=== PATIENT | male | born 1975 | race Caucasian/White ===

== ENCOUNTER → 2016-10-11 | Emergency (ER) | payer OTHER ==
[~2016-10-11] VITALS: Ht 162.6 cm; Wt 58.5 kg
[~2016-10-11] MED LIST: ADV250INH INH; ADV500INH INH; ALBU17IN INH; ALBU83IN INH; AMOXICILLIN PO; AUGM875T27 PO; BREO1INH PO; CENTTAB47 PO; CLAR10CA3 PO; CYMB1CAP5 PO; GABA600T PO; HUMA100I5 SC; IPRA2IN INH; Insulin; LEVA500T PO; LEVE1INJ5 SC; LEVO500T32 PO; LISI-538 PO; MUCI600T34 PO; NICO21DI5 TD; OXAZ10CA PO; PAXI10TA2 PO; PRED10TA PO; PRED20TAB PO; PROZ10CA7 PO; REQU2TAB3 PO; SING10TA32 PO; TOUJ1.2I SC; TRAM50TA2 PO; TRAZ100T4 PO; [UNRECOGNIZED DRUG - CODE] PO
[2016-10-11 22:46] VITALS: BP 124/62
== END | disposition home or self-care (01) ==
LOC: EDUNIT# 22:19 → EDBD 22:21 → M ED 23:54
DX: E16.2 Hypoglycemia, unspecified (principal); Z53.21 Procedure and treatment not carried out due to patient leaving prior to being seen by health care provider

== ENCOUNTER 2017-06-18 21:47 | Emergency (ER) | payer OTHER ==
[2017-06-18] MEDS: DEXTROSE 50% 50 ML SYRINGE IV (22:03)
[2017-06-18 22:16] LABS: BEDSIDE GLUCOSE 54 MG/DL (70-105)
[2017-06-18] MEDS ORDERED: NALOXONE INJ 2 MG/2 ML SYRINGE (J2310) As Ordered (22:59)
[2017-06-18] MEDS: NALOXONE INJ 2 MG/2 ML SYRINGE (J2310) IV (23:00)
[2017-06-18 23:11] LABS: BEDSIDE GLUCOSE 149 MG/DL (70-105)
[2017-06-18] MEDS: NALOXONE INJ 2 MG/2 ML SYRINGE (J2310) IM (23:14)
== END 2017-06-19 00:24 | disposition home or self-care (01) ==
LOC: M ED 21:47
DX: F11.10 Opioid abuse, uncomplicated (principal); E11.649 Type 2 diabetes mellitus with hypoglycemia without coma; I10 Essential (primary) hypertension; J45.909 Unspecified asthma, uncomplicated; F33.9 Major depressive disorder, recurrent, unspecified; Z79.899 Other long term (current) drug therapy; Z79.4 Long term (current) use of insulin; Z79.51 Long term (current) use of inhaled steroids; F17.210 Nicotine dependence, cigarettes, uncomplicated
CPT/HCPCS: J2310

== ENCOUNTER 2018-01-19 17:27 | Emergency (ER) | payer OTHER ==
[2018-01-19] MEDS: NALOXONE INJ 0.4 MG/1 ML VIAL (J2310) IV (18:16)
[2018-01-19] MEDS: NS 1,000 ML IV (18:20)
[2018-01-19 18:32] LABS: VENOUS BASE EXCESS -2.6 (-2.0-2.0); VENOUS HCO3 24.6 MEQ/L (23.0-27.0); VENOUS O2 SATURATION 95.9 % (60.0-80.0); VENOUS PARTIAL PRESSURE CO2 52.5 mmHg (38.0-50.0); VENOUS PARTIAL PRESSURE O2 84.6 mmHg (30.0-50.0); VENOUS PH 7.288 UNITS (7.330-7.430); VENOUS STANDARD HCO3 22.3 MEQ/L; VENOUS TOTAL CO2 26.2 MEQ/L (24.0-28.0)
[2018-01-19 18:41] LABS: BASO # 0.1 10^3/uL (0.0-0.2); BASO % 1.1 % (0.0-1.0); EOS # 0.2 10^3/uL (0.0-0.50); EOS % 2.4 % (0.0-3.0); HEMATOCRIT 35.2 % (42.0-52.0); HEMOGLOBIN 11.8 g/dl (13.5-17.5); IMMATURE GRANULOCYTE % 0.1 % (0-3.0); LYMPH % 27.1 % (24.0-44.0); MEAN CORPUSCULAR HEMOGLOBIN 30.1 pg (27.0-33.0); MEAN CORPUSCULAR HGB CONC 33.5 g/dl (32.0-36.5); MEAN CORPUSCULAR VOLUME 89.8 fl (80.0-96.0); MONO # 0.7 10^3/uL (0.0-0.8); MONO % 9.3 % (0.0-5.0); NEUTROPHILS # 4.3 10^3/uL (1.8-7.7); PLATELET COUNT, AUTOMATED 244 10^3/uL (150-450); RED BLOOD COUNT 3.92 10^6/uL (4.30-6.10); RED CELL DISTRIBUTION WIDTH 12.6 % (11.5-14.5); WHITE BLOOD COUNT 7.2 10^3/uL (4.0-10.0)
[2018-01-19 18:59] LABS: ALBUMIN 3.9 GM/DL (3.2-5.2); ALBUMIN/GLOBULIN RATIO 1.39 (1.00-1.93); ALKALINE PHOSPHATASE 64 U/L (45-117); ALT/SGPT 33 U/L (12-78); ANION GAP 8 MEQ/L (8-16); AST/SGOT 15 U/L (7-37); BILIRUBIN,DIRECT 0.1 MG/DL (0.0-0.2); BILIRUBIN,TOTAL 0.4 MG/DL (0.2-1.0); BLOOD UREA NITROGEN 18 MG/DL (7-18); CALCIUM LEVEL 8.5 MG/DL (8.5-10.1); CARBON DIOXIDE LEVEL 26 MEQ/L (21-32); CHLORIDE LEVEL 107 MEQ/L (98-107); CPK CREATINE PHOSPHOKINASE 114 U/L (39-308); CREATININE FOR GFR 1.54 MG/DL (0.70-1.30); GLOMERULAR FILTRATION RATE 53.3 (>60); GLUCOSE, FASTING 310 MG/DL (70-100); POTASSIUM SERUM 4.8 MEQ/L (3.5-5.1); SALICYLATE LEVEL 2.2 MG/DL (5.0-30.0); SODIUM LEVEL 141 MEQ/L (136-145); TOTAL PROTEIN 6.7 GM/DL (6.4-8.2); TROPONIN I < 0.02 NG/ML (< 0.10)
[2018-01-19 19:00] LABS: ACETAMINOPHEN LEVEL < 2.0 UG/ML (10.0-30.0); CK-MB VALUE MASS 2.8 NG/ML (<3.6); MB/CK RELATIVE INDEX 2.45 (< OR =4)
[2018-01-19 19:02] LABS: ETHYL ALCOHOL (ETHANOL) < 0.003 % (0.000-0.010)
== END 2018-01-19 19:50 | disposition left against medical advice (07) ==
LOC: M ED 17:27
DX: T40.2X1A Poisoning by other opioids, accidental (unintentional), initial encounter (principal); F11.120 Opioid abuse with intoxication, uncomplicated; E11.9 Type 2 diabetes mellitus without complications; I10 Essential (primary) hypertension; M54.9 Dorsalgia, unspecified; Z79.899 Other long term (current) drug therapy; Z79.51 Long term (current) use of inhaled steroids; Z79.4 Long term (current) use of insulin
CPT/HCPCS: J2310

== ENCOUNTER → 2018-02-10 | Outpatient (CLI) | payer MEDICAID | LOC: M PAIN 13:30 | DX: E11.42 Type 2 diabetes mellitus with diabetic polyneuropathy (principal); G25.81 Restless legs syndrome; J45.909 Unspecified asthma, uncomplicated; I10 Essential (primary) hypertension; F17.200 Nicotine dependence, unspecified, uncomplicated; Z79.4 Long term (current) use of insulin; Z79.899 Other long term (current) drug therapy | CPT/HCPCS: G0463 ==

== ENCOUNTER → 2018-02-27 | Outpatient (CLI) | payer MEDICAID | LOC: M PAIN 15:00 | DX: Z53.29 Procedure and treatment not carried out because of patient's decision for other reasons (principal) ==

== ENCOUNTER → 2018-03-17 | Outpatient (CLI) | payer MEDICAID | LOC: M PAIN 15:45 | DX: Z53.29 Procedure and treatment not carried out because of patient's decision for other reasons (principal) ==

== ENCOUNTER 2018-09-12 10:32 | Emergency (ER) | payer MEDICAID, OTHER ==
[~2018-09-12] VITALS: Ht 162.6 cm; Wt 57.0 kg
[~2018-09-12 10:32] MED LIST changes: -AUGM875T27 PO; +AUGM875T28 PO; -GABA600T PO; +GABA600T4 PO; +HYDR-3719; +LEVA1TAB2 PO; -LEVA500T PO; +LEVO500T3 PO; -LEVO500T32 PO; +LYRI200C; -MUCI600T34 PO; +MUCI600T37 PO; -NICO21DI5 TD; +NICO21DI6 TD; -OXAZ10CA PO; +OXAZ10CA3 PO; +PAXI10TA12 PO; -PAXI10TA2 PO; +PRED-351 PO; -PRED10TA PO; +TRAZ-163 PO; -TRAZ100T4 PO; +[UNRECOGNIZED DRUG - CODE] PO; -[UNRECOGNIZED DRUG - CODE] PO
[2018-09-12] MEDS ORDERED: methylPREDNISolone INJ 40 MG/1 ML VIAL (J2920) IV ONE (11:45)
[2018-09-12] MEDS: IPRATROPIUM 0.5MG/ALBUTEROL 2.5MG INH SOL UD 3ML (DUONEB)(J7620) NEB SCH ×3 (11:58→12:36)
[2018-09-12 12:49] LABS: BASO # 0.1 10^3/uL (0.0-0.2); EOS # 0.7 10^3/uL (0.0-0.50); EOS % 6.4 % (0.0-3.0); HEMATOCRIT 38.2 % (42.0-52.0); HEMOGLOBIN 12.4 g/dl (13.5-17.5); LYMPH # 1.3 10^3/uL (1.5-4.5); MEAN CORPUSCULAR HEMOGLOBIN 29.7 pg (27.0-33.0); MEAN CORPUSCULAR HGB CONC 32.5 g/dl (32.0-36.5); MEAN CORPUSCULAR VOLUME 91.4 fl (80.0-96.0); MONO # 0.7 10^3/uL (0.0-0.8); MONO % 6.7 % (0.0-5.0); NEUTROPHILS # 8.1 10^3/uL (1.8-7.7); NEUTROPHILS % 73.5 % (36.0-66.0); PLATELET COUNT, AUTOMATED 218 10^3/uL (150-450); RED BLOOD COUNT 4.18 10^6/uL (4.30-6.10); WHITE BLOOD COUNT 11.1 10^3/uL (4.0-10.0)
--- NOTE | 2018-09-12 13:04 | REP ---
Chest x-ray: Two views. History: Short of breath and cough. Comparison chest x-ray: April 04, 2015. Findings: The lungs are hyperinflated suggestive of some degree of COPD but clear. Pleural angles are sharp. Heart size is normal. Pulmonary vasculature is not increased. There are mild degenerative changes in the thoracic spine. No other bony abnormality. Impression: Mild hyperinflation. Otherwise no active disease. Electronically Signed by Fernando Rubio MD 09/12/2018 12:55 P
[2018-09-12 13:18] LABS: BLOOD UREA NITROGEN 17 MG/DL (7-18); CALCIUM LEVEL 9.1 MG/DL (8.5-10.1); CARBON DIOXIDE LEVEL 24 MEQ/L (21-32); CHLORIDE LEVEL 107 MEQ/L (98-107); CREATININE FOR GFR 0.82 MG/DL (0.70-1.30); GLOMERULAR FILTRATION RATE > 60.0 (>60); GLUCOSE, FASTING 189 MG/DL (70-100); POTASSIUM SERUM 4.4 MEQ/L (3.5-5.1); SODIUM LEVEL 138 MEQ/L (136-145)
[2018-09-12] MEDS ORDERED: AUGM875T28 PO (13:54)
[2018-09-12] MEDS ORDERED: PRED20TA PO (13:54)
[2018-09-12] MEDS ORDERED: ADV500INH INH (13:54)
[2018-09-12] MEDS ORDERED: MUCI600T31 PO (13:54)
[2018-09-12 14:01] VITALS: BP 130/64
--- NOTE | 2018-09-13 08:16 | ECGEPIP ---
Stationary ECG Study [facility] - ED Test Date: 2018-09-12 Pat Name: BIENVENIDO BOLIVAR Department: Room: - Gender: M Fibreglass Lay Up Worker: : 1975 Requested By: KRISTYN CASTILLO PA-C. Order Number: [id number] Reading MD: Coral Daly Measurements Intervals [place] Rate: 82 P: 81 MS: 127 QRS: 81 QRSD: 90 T: 71 QT: 371 QTc: 435 Interpretive Statements SINUS RHYTHM RIGHT VENTRICULAR CONDUCTION DELAY SIMILAR 04/02/15 Electronically Signed On 09-13-2018 8:16:14 EDT by Coral Daly
== END 2018-09-12 14:03 | disposition home or self-care (01) ==
LOC: M ED 10:32
DX: J44.1 Chronic obstructive pulmonary disease with (acute) exacerbation (principal); J20.9 Acute bronchitis, unspecified; I45.89 Other specified conduction disorders; Z72.0 Tobacco use; Z79.4 Long term (current) use of insulin; Z79.899 Other long term (current) drug therapy
CPT/HCPCS: 36415; 71046; 80048; 85025; 93005; 94640; 96374; 99284; J2920

== ENCOUNTER → 2018-10-17 | Outpatient (REF) | payer OTHER ==
[~2018-10-17] MED LIST changes: +MUCI600T31 PO; +PRED20TA PO
[2018-10-17 16:23] LABS: HEMOGLOBIN A1c 9.5 %
[2018-10-17 16:36] LABS: ALBUMIN 3.6 GM/DL (3.2-5.2); ALT/SGPT 24 U/L (12-78); BILIRUBIN,TOTAL 0.3 MG/DL (0.2-1.0); BLOOD UREA NITROGEN 19 MG/DL (7-18); CALCIUM LEVEL 8.2 MG/DL (8.5-10.1); CARBON DIOXIDE LEVEL 30 MEQ/L (21-32); CHLORIDE LEVEL 102 MEQ/L (98-107); CHOLESTEROL LEVEL 157 MG/DL (<200); CHOLESTEROL RISK RATIO 2.211 (<5); CREATININE FOR GFR 0.86 MG/DL (0.70-1.30); GLOMERULAR FILTRATION RATE > 60.0 (>60); GLUCOSE, FASTING 230 MG/DL (70-100); HDL CHOLESTEROL 71 MG/DL (>40); LDL CHOLESTEROL 72 MG/DL (<100); NON-HDL-C 86 MG/DL; POTASSIUM SERUM 4.2 MEQ/L (3.5-5.1); SODIUM LEVEL 136 MEQ/L (136-145); TOTAL PROTEIN 6.3 GM/DL (6.4-8.2); TRIGLYCERIDES LEVEL 71 MG/DL (<150)
== END ==
LOC: M SFHCPLAZ 14:36
PROVIDERS: ATTEND Family Medicine
DX: Z51.81 Encounter for therapeutic drug level monitoring (principal); Z13.220 Encounter for screening for lipoid disorders; I10 Essential (primary) hypertension; E10.42 Type 1 diabetes mellitus with diabetic polyneuropathy

== ENCOUNTER 2019-10-31 14:42 | Emergency (ER) | payer MEDICARE, MEDICAID ==
[~2019-10-31] VITALS: Ht 162.6 cm; Wt 58.6 kg
[~2019-10-31 14:42] MED LIST changes: -TRAZ-163 PO; +TRAZ-257 PO
[2019-10-31 14:58] VITALS: BP 119/69
[2019-10-31] MEDS ORDERED: NS 1,000 ML IV ONE (15:00)
--- NOTE | 2019-10-31 15:38 | REP ---
PORTABLE CHEST X-RAY: SINGLE VIEW. HISTORY: Diabetic ketoacidosis. Comparison chest x-ray: September 12, 2018 FINDINGS: The lungs are well inflated. There are increased markings in the lung apices bilaterally, uncertain significance. There is nonmetallic jewelry artifact around the neck and projecting over the right paratracheal region. I cannot exclude subtle interstitial infiltrates in the apices bilaterally. Heart is not enlarged. IMPRESSION: Increased markings in the lung apices bilaterally. Clothing and jewelry artifact seen. Otherwise no acute disease. Electronically Signed by Fernando Rubio MD 10/31/2019 04:16 P
--- NOTE | 2019-10-31 17:53 | ECGEPIP ---
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
== END 2019-10-31 15:50 | disposition left against medical advice (07) ==
LOC: M ED 14:42 → EDBD 14:42 → M ED 15:50
DX: R55 Syncope and collapse (principal); E10.65 Type 1 diabetes mellitus with hyperglycemia; R00.0 Tachycardia, unspecified; J45.909 Unspecified asthma, uncomplicated; Z79.899 Other long term (current) drug therapy; Z79.4 Long term (current) use of insulin

== ENCOUNTER 2020-05-17 03:08 | Emergency (ER) | payer MEDICARE, MEDICAID ==
[~2020-05-17] VITALS: Ht 162.6 cm; Wt 58.6 kg
[2020-05-17] MEDS ORDERED: GABA600T4 PO (03:29)
[2020-05-17] MEDS: COMBIVENT RESPIMAT 100-20MCG INHALER 4GM INH SCH ×3 (04:03→04:16)
[2020-05-17 04:26] LABS: BASO # 0.1 10^3/uL (0.0-0.2); BASO % 1.3 % (0.0-1.0); EOS # 0.7 10^3/uL (0.0-0.5); EOS % 9.1 % (0.0-3.0); HEMATOCRIT 37.8 % (42.0-52.0); HEMOGLOBIN 12.2 g/dl (13.5-17.5); LYMPH # 2.1 10^3/uL (1.5-5.0); LYMPH % 26.9 % (24.0-44.0); MEAN CORPUSCULAR HEMOGLOBIN 28.7 pg (27.0-33.0); MEAN CORPUSCULAR HGB CONC 32.3 g/dl (32.0-36.5); MEAN CORPUSCULAR VOLUME 88.9 fl (80.0-96.0); MONO # 0.8 10^3/uL (0.0-0.8); MONO % 9.6 % (0.0-5.0); NEUTROPHILS # 4.2 10^3/uL (1.5-8.5); NEUTROPHILS % 52.8 % (36.0-66.0); PLATELET COUNT, AUTOMATED 251 10^3/uL (150-450); RED BLOOD COUNT 4.25 10^6/uL (4.30-6.10); WHITE BLOOD COUNT 7.9 10^3/uL (4.0-10.0)
[2020-05-17] MEDS ORDERED: methylPREDNISolone 125MG 2ML VIAL IV ONE (04:30)
[2020-05-17 04:36] LABS: ABG BASE EXCESS 0.7 (-2.0-2.0); ABG HCO3 27.2 MEQ/L (22.0-26.0); ABG O2 SATURATION 98.3 % (95.0-99.0); ABG PARTIAL PRESSURE CO2 51.6 mmHg (35.0-45.0); ABG PARTIAL PRESSURE O2 119.6 mmHg (75.0-100.0); ABG STANDARD HCO3 25.1 MEQ/L (22.0-26.0); ABG TOTAL CO2 28.8 MEQ/L (22.0-29.0)
[2020-05-17 04:40] LABS: ALBUMIN 3.8 GM/DL (3.2-5.2); ALT/SGPT 33 U/L (12-78); BILIRUBIN,DIRECT 0.1 MG/DL (0.0-0.2); BILIRUBIN,TOTAL 0.3 MG/DL (0.2-1.0); BLOOD UREA NITROGEN 15 MG/DL (7-18); CARBON DIOXIDE LEVEL 27 MEQ/L (21-32); CHLORIDE LEVEL 109 MEQ/L (98-107); CK-MB VALUE MASS 14.8 NG/ML (<3.6); CPK CREATINE PHOSPHOKINASE 323 U/L (39-308); CREATININE FOR GFR 0.71 MG/DL (0.70-1.30); GLOMERULAR FILTRATION RATE > 60.0 (>60); GLUCOSE, FASTING 82 MG/DL (70-100); MB/CK RELATIVE INDEX 4.58 (< OR =4); POTASSIUM SERUM 3.8 MEQ/L (3.5-5.1); SODIUM LEVEL 143 MEQ/L (136-145); TOTAL PROTEIN 6.8 GM/DL (6.4-8.2); TROPONIN I < 0.02 NG/ML (< 0.10)
[2020-05-17] MEDS ORDERED: PRED20TA PO (06:42)
--- NOTE | 2020-05-17 06:51 | REPVR ---
PROCEDURE INFORMATION: Exam: XR Chest, 1 View Exam date and time: 05/17/2020 6:05 AM Age: 45 years old Clinical indication: Cough; Additional info: Dyspnea/cough TECHNIQUE: Imaging protocol: XR of the chest Views: 1 view. COMPARISON: [place] PORTABLE CHEST X-RAY 10/31/2019 3:03 PM FINDINGS: Lungs: No evidence of acute pneumonia. Bilateral pulmonary hyperinflation consistent with underlying COPD. No interval change since the previous chest radiograph from 10/31/2019. Pleural space: Unremarkable. No pleural effusion. No pneumothorax. Heart/Mediastinum: No CT evidence of thoracic aortic aneurysm. The heart size is normal. Bones/joints: Mild chronic degenerative vertebral body endplate osteophytic disease is seen in the mid to lower thoracic spine. IMPRESSION: 1. No CT evidence of thoracic aortic aneurysm. 2. The heart size is normal. 3. Mild chronic degenerative vertebral body endplate osteophytic disease is seen in the mid to lower thoracic spine. Electronically signed by: Vish White On 05/17/2020 06:51:13 AM
[2020-05-17 07:00] VITALS: BP 152/71
--- NOTE | 2020-05-17 10:05 | ECGEPIP ---
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
== END 2020-05-17 07:11 | disposition home or self-care (01) ==
LOC: M ED 03:08
DX: J45.901 Unspecified asthma with (acute) exacerbation (principal); M25.78 Osteophyte, vertebrae; E11.9 Type 2 diabetes mellitus without complications; F17.200 Nicotine dependence, unspecified, uncomplicated; Z79.4 Long term (current) use of insulin; Z79.899 Other long term (current) drug therapy
CPT/HCPCS: 36600; 71045; 80048; 80076; 82550; 82553; 82803; 83605; 84484; 85025; 87486; 87581; 87633; 87798; 93005; 93041; 94640; 96374; 99285; J2930

== ENCOUNTER 2020-06-16 19:38 | Emergency (ER) | payer MEDICARE, MEDICAID ==
[~2020-06-16] VITALS: Ht 162.6 cm; Wt 55.9 kg
[2020-06-16 19:40] VITALS: BP 158/72
== END 2020-06-16 22:05 | disposition left against medical advice (07) ==
LOC: M ED 19:38
DX: Z53.21 Procedure and treatment not carried out due to patient leaving prior to being seen by health care provider (principal)

== ENCOUNTER → 2020-09-08 | Outpatient (REF) | payer MEDICARE, MEDICAID ==
[~2020-09-08] MED LIST changes: -LISI-538 PO; +LISI20TA33 PO
[2020-09-08 14:41] LABS: HEMOGLOBIN A1c 12.3 %
[2020-09-08 15:05] LABS: ALBUMIN 3.7 GM/DL (3.2-5.2); ALT/SGPT 42 U/L (12-78); BILIRUBIN,TOTAL 0.2 MG/DL (0.2-1.0); BLOOD UREA NITROGEN 15 MG/DL (7-18); CALCIUM LEVEL 9.6 MG/DL (8.5-10.1); CARBON DIOXIDE LEVEL 33 MEQ/L (21-32); CHLORIDE LEVEL 104 MEQ/L (98-107); CREATININE FOR GFR 0.69 MG/DL (0.70-1.30); GLOMERULAR FILTRATION RATE > 60.0 (>60); GLUCOSE, FASTING 170 MG/DL (70-100); POTASSIUM SERUM 4.7 MEQ/L (3.5-5.1); SODIUM LEVEL 141 MEQ/L (136-145); TOTAL PROTEIN 6.6 GM/DL (6.4-8.2)
[2020-09-08 15:37] LABS: MAU/CREAT RATIO 656.6 MCG/MG (0.0-30.0)
== END ==
LOC: M SFHCPLAZ 11:48
PROVIDERS: ATTEND Family Medicine
DX: E10.42 Type 1 diabetes mellitus with diabetic polyneuropathy (principal); I10 Essential (primary) hypertension
CPT/HCPCS: 36415; 80053; 82043; 83036; G0463

== ENCOUNTER 2020-12-13 00:08 | Emergency (ER) | payer MEDICARE, MEDICAID ==
[~2020-12-13] VITALS: Ht 162.6 cm; Wt 52.6 kg
[2020-12-13 00:09] VITALS: BP 174/86
== END 2020-12-13 03:38 | disposition left against medical advice (07) ==
LOC: M ED 00:08
DX: Z53.21 Procedure and treatment not carried out due to patient leaving prior to being seen by health care provider (principal)

== ENCOUNTER 2021-01-28 14:32 | Emergency (ER) | payer OTHER, MEDICAID ==
[2021-01-28] MEDS ORDERED: NS 1,000 ML IV ONE (17:30)
[2021-01-28] MEDS ORDERED: LIDOCAINE 2% 5ML JELLY UROJET TOP ONE (17:30)
[2021-01-28 17:42] LABS: BASO # 0.1 10^3/uL (0.0-0.2); BASO % 0.6 % (0.0-1.0); EOS # 0.4 10^3/uL (0.0-0.5); EOS % 3.3 % (0.0-3.0); HEMATOCRIT 44.2 % (42.0-52.0); HEMOGLOBIN 14.5 g/dl (13.5-17.5); LYMPH # 1.8 10^3/uL (1.5-5.0); LYMPH % 13.2 % (24.0-44.0); MEAN CORPUSCULAR HEMOGLOBIN 29.7 pg (27.0-33.0); MEAN CORPUSCULAR HGB CONC 32.8 g/dl (32.0-36.5); MEAN CORPUSCULAR VOLUME 90.4 fl (80.0-96.0); MONO # 1.2 10^3/uL (0.0-0.8); MONO % 8.6 % (2.0-8.0); NEUTROPHILS # 9.9 10^3/uL (1.5-8.5); NEUTROPHILS % 73.9 % (36.0-66.0); PLATELET COUNT, AUTOMATED 287 10^3/uL (150-450); RED BLOOD COUNT 4.89 10^6/uL (4.30-6.10); WHITE BLOOD COUNT 13.4 10^3/uL (4.0-10.0)
[2021-01-28 17:53] LABS: ACETAMINOPHEN LEVEL < 2.0 UG/ML (10.0-30.0); ACETONE/KETONE 2.05 MG/DL (<2.81); ALBUMIN 4.2 GM/DL (3.2-5.2); ALT/SGPT 40 U/L (12-78); BILIRUBIN,DIRECT 0.2 MG/DL (0.0-0.2); BILIRUBIN,TOTAL 0.5 MG/DL (0.2-1.0); BLOOD UREA NITROGEN 20 MG/DL (7-18); CALCIUM LEVEL 9.6 MG/DL (8.5-10.1); CARBON DIOXIDE LEVEL 29 MEQ/L (21-32); CHLORIDE LEVEL 109 MEQ/L (98-107); CK-MB VALUE MASS 9.2 NG/ML (<3.6); CPK CREATINE PHOSPHOKINASE 479 U/L (39-308); CREATININE FOR GFR 0.78 MG/DL (0.70-1.30); ETHYL ALCOHOL (ETHANOL) < 0.003 % (0.000-0.010); GLOMERULAR FILTRATION RATE > 60.0 (>60); GLUCOSE, FASTING 52 MG/DL (70-100); MB/CK RELATIVE INDEX 1.92 (< OR =4); POTASSIUM SERUM 4.1 MEQ/L (3.5-5.1); SALICYLATE LEVEL < 1.7 MG/DL (5.0-30.0); SODIUM LEVEL 143 MEQ/L (136-145); TOTAL PROTEIN 7.4 GM/DL (6.4-8.2); TROPONIN I < 0.02 NG/ML (< 0.10)
[2021-01-28] MEDS ORDERED: NARC1SPR NARES (20:14)
[2021-01-28 20:16] VITALS: BP 140/78
--- NOTE | 2021-01-29 18:49 | ECGEPIP ---
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
== END 2021-01-28 20:20 | disposition home or self-care (01) ==
LOC: M ED 14:32
DX: T40.1X1A Poisoning by heroin, accidental (unintentional), initial encounter (principal); Y92.89 Other specified places as the place of occurrence of the external cause; E11.9 Type 2 diabetes mellitus without complications; G62.9 Polyneuropathy, unspecified; G25.81 Restless legs syndrome; Z87.442 Personal history of urinary calculi; Z79.899 Other long term (current) drug therapy; Z79.4 Long term (current) use of insulin

== ENCOUNTER 2021-02-01 16:20 | Emergency (ER) | payer MEDICAID ==
[~2021-02-01 16:20] MED LIST changes: +NARC1SPR NARES
== END 2021-02-01 16:35 | disposition left against medical advice (07) ==
LOC: M ED 16:20 → EDBD 16:20 → M ED 16:35
DX: Z53.29 Procedure and treatment not carried out because of patient's decision for other reasons (principal)

== ENCOUNTER → 2021-08-10 | Outpatient (CLI) | payer OTHER ==
[~2021-08-10] MED LIST changes: -LEVO500T3 PO; +LEVO500T4 PO
== END ==
LOC: M WUC 13:55
PROVIDERS: ATTEND Physician Assistant Medical
DX: S92.002A Unspecified fracture of left calcaneus, initial encounter for closed fracture (principal); Y92.9 Unspecified place or not applicable; Y93.9 Activity, unspecified; Y99.9 Unspecified external cause status

== ENCOUNTER → 2021-11-10 | Outpatient (CLI) | payer OTHER ==
[~2021-11-10] MED LIST changes: +ALBU2.5V10 INH; -ALBU83IN INH
== END ==
LOC: M WUC 10:37
PROVIDERS: ATTEND Surgery
DX: M79.672 Pain in left foot (principal)

== ENCOUNTER → 2022-01-29 | Outpatient (CLI) | payer OTHER ==
[~2022-01-29] MED LIST changes: +INSUHUMDS SC; +LEVO1TAB39 PO; -LEVO500T4 PO
== END ==
LOC: M LAB 13:09
PROVIDERS: ATTEND Physician Assistant Medical
DX: A07.3 Isosporiasis (principal); B38.3 Cutaneous coccidioidomycosis

== ENCOUNTER → 2023-09-14 | Outpatient (CLI) | payer MEDICARE, MEDICAID ==
[~2023-09-14] MED LIST changes: +INSU100I6 SC; -LEVE1INJ5 SC; +MONT-5 PO; -PAXI10TA12 PO; +PAXI10TA13 PO; -SING10TA32 PO
== END ==
LOC: M OUTALCOH 08:43
PROVIDERS: ATTEND Psychiatry & Neurology Psychiatry
DX: F11.20 Opioid dependence, uncomplicated (principal); F17.200 Nicotine dependence, unspecified, uncomplicated

== ENCOUNTER 2023-10-03 14:58 | Outpatient (RCR) | payer MEDICAID | END 2023-10-04 | LOC: M OUTALCOH 14:58 | PROVIDERS: ATTEND Psychiatry & Neurology Child & Adolescent Psychiatry | DX: F11.20 Opioid dependence, uncomplicated (principal); F17.200 Nicotine dependence, unspecified, uncomplicated ==

== ENCOUNTER → 2023-12-22 | Outpatient (REF) | payer MEDICAID | LOC: M RAD 14:20 → EDSTATUS 14:29 → M RAD 14:30 | PROVIDERS: ATTEND Internal Medicine | DX: M46.96 Unspecified inflammatory spondylopathy, lumbar region (principal); M50.30 Other cervical disc degeneration, unspecified cervical region ==

== ENCOUNTER 2024-10-09 09:27 | Emergency (ER) | payer MEDICAID, OTHER ==
[~2024-10-09] VITALS: Ht 162.6 cm; Wt 53.1 kg
[~2024-10-09 09:27] MED LIST changes: -ADV250INH INH; -ADV500INH INH; +ADVA1AER10 INH; +ADVA1AER9 INH; +GABA-1490 PO; -GABA600T4 PO
[2024-10-09] MEDS: IPRATROPIUM 0.5MG/ALBUTEROL 2.5MG INH SOL UD 3ML NEB ONE (12:04)
[2024-10-09] MEDS ORDERED: PRED10TA2 PO (13:40)
[2024-10-09] MEDS ORDERED: ALBU2.5V10 NEB (13:41)
[2024-10-09 13:43] VITALS: BP 159/73; TEMP 98
[2024-10-09 14:15] VITALS: O2SAT 95
== END 2024-10-09 14:34 | disposition home or self-care (01) ==
LOC: M ED 09:27
DX: J44.1 Chronic obstructive pulmonary disease with (acute) exacerbation (principal); E10.9 Type 1 diabetes mellitus without complications; F17.200 Nicotine dependence, unspecified, uncomplicated; Z79.4 Long term (current) use of insulin

== ENCOUNTER → 2025-03-19 | Outpatient (CLI) | payer MEDICARE ==
[~2025-03-19] MED LIST changes: +ALBU2.5V10 NEB; +PRED10TA2 PO; +PROZ10CA11 PO; -PROZ10CA7 PO
== END ==
LOC: M RAD 13:14
PROVIDERS: ATTEND Physician Assistant Medical
DX: M25.551 Pain in right hip (principal)

== ENCOUNTER 2025-03-31 07:37 | Inpatient (IN) | payer MEDICARE ==
[~2025-03-31] VITALS: Ht 162.6 cm; Wt 55.2 kg
[2025-03-31] MEDS: IPRATROPIUM 0.5 MG/ALBUTEROL 2.5 MG INH SOL UD 3 ML NEB ONE ×2 (08:16→11:47)
[2025-03-31] MEDS: ALBUTEROL SULFATE 2.5 MG/0.5 ML INH CONCENTRATE NEB SOLN INH ONE ×2 (08:16→11:47)
[2025-03-31 08:32] LABS: ABG BASE EXCESS -4.7 (-2.0-2.0); ABG HCO3 20.9 MMOL/L (22.0-26.0); ABG O2 SATURATION 95.7 % (95.0-99.0); ABG PARTIAL PRESSURE CO2 40.5 mmHg (35.0-45.0); ABG PARTIAL PRESSURE O2 81.3 mmHg (75.0-100.0); ABG STANDARD HCO3 20.6 MMOL/L. (22.0-26.0); ABG TOTAL CO2 22.1 MMOL/L (22.0-29.0); ABG pH (ARTERIAL) 7.330 UNITS (7.350-7.450)
[2025-03-31] MEDS: NS (Normal Saline) 0.9% 1,000 ML IV ONE (08:45)
[2025-03-31 08:57] LABS: BASO # 0.2 10^3/uL (0.0-0.2); BASO % 1.3 % (0.0-1.0); EOS # 0.7 10^3/uL (0.0-0.5); EOS % 4.3 % (0.0-3.0); LYMPH # 0.9 10^3/uL (1.5-5.0); LYMPH % 5.9 % (24.0-44.0); MONO # 0.7 10^3/uL (0.0-0.8); MONO % 4.3 % (2.0-8.0); NEUTROPHILS # 12.7 10^3/uL (1.5-8.5); NEUTROPHILS % 83.7 % (36.0-66.0); PLATELET COUNT, AUTOMATED 413 10^3/uL (150-450)
[2025-03-31 09:10] LABS: OSMOLALITY SERUM 304 MOSM/KG (275-295)
[2025-03-31 09:15] LABS: ALT/SGPT 55 U/L (7.0-40); AST/SGOT 52 U/L (<34); CALCIUM LEVEL 9.0 MG/DL (8.5-10.1); CARBON DIOXIDE LEVEL 25 MMOL/L (20-31); CHLORIDE LEVEL 102 MMOL/L (98-107); CREATININE FOR GFR 0.61 MG/DL (0.70-1.30); GLOMERULAR FILTRATION RATE > 90.0 (>60); MAGNESIUM LEVEL 1.9 MG/DL (1.8-2.4); PHOSPHORUS LEVEL 3.4 MG/DL (2.5-4.9); POTASSIUM SERUM 4.4 MMOL/L (3.5-5.1); SODIUM LEVEL 140 MMOL/L (136-145)
[2025-03-31 09:16] LABS: ACETONE/KETONE 4.26 MMOL/L (0.02-0.27)
[2025-03-31] MEDS ORDERED: ISOVUE-370 76% 100 ML VIAL As Ordered ONE (10:02)
[2025-03-31 10:41] LABS: ESTIMATED AVERAGE GLUCOSE 249.0 MG/DL (60-110)
[2025-03-31 11:14] VITALS: O2SAT 94
[2025-03-31 11:40] LABS: KETONE, URINE AUTO RFX 2+ mg/dL (NEGATIVE); LEUKOCYTE ESTERASE UR AUTO RFX NEGATIVE (NEGATIVE); NITRITE, URINE AUTO RFX NEGATIVE (NEGATIVE); RBC, URINE AUTO RFX 1 /HPF (0-3); SQUAM EPITHELIAL CELL UR AURFX 0 /HPF (0-6); WBC, URINE AUTO RFX 1 /HPF (0-3)
[2025-03-31] MEDS ORDERED: BASA100I SC (12:58)
[2025-03-31] MEDS ORDERED: VENTAER INH (12:58)
[2025-03-31] MEDS ORDERED: ALBU2.5V10 INH (12:58)
[2025-03-31] MEDS ORDERED: NOVOINJ SC (12:58)
[2025-03-31] MEDS ORDERED: HOME MED LIST COMPLETE! XX SCH (13:00)
[2025-03-31] MEDS ORDERED: GLUCOSE 4 GM CHEW PO PRN (13:35)
[2025-03-31] MEDS ORDERED: GLUCAGON INJ 1 MG VIAL SC PRN (13:35)
[2025-03-31] MEDS ORDERED: DEXTROSE 50% 50 ML SYRINGE IV PRN (13:35)
[2025-03-31] MEDS: cefTRIAXone SOD 1 GM in DEXTROSE 5% (D5W) ADV/MINI-BAG 50 ML IV ONE (13:43)
[2025-03-31] MEDS ORDERED: ALBUTEROL SULFATE 2.5 MG/0.5 ML INH CONCENTRATE NEB SOLN INH PRN (13:45)
[2025-03-31] MEDS ORDERED: ALBUTEROL 90 MCG/ACT 8 GM HFA INHALER INH PRN (13:45)
[2025-03-31] MEDS: INSULIN LISPRO (NovoLOG) PER UNIT SC ONE (13:58)
[2025-03-31] MEDS: LanTUS (INSULIN GLARGINE INJ) 1 UNITS/0.01 ML SC SCH (13:58)
[2025-03-31] MEDS: LR 1,000 ML IV ONE (14:00)
[2025-03-31] MEDS: DOXYCYCLINE HYCLATE 100 MG in DEXTROSE 5% (D5W) MINI-BAG PLU 100 ML IV ONE (14:34)
[2025-03-31 15:04] LABS: BARBITURATES URINE NEGATIVE (NEGATIVE); BENZODIAZEPINES URINE NEGATIVE (NEGATIVE); CANNABINOIDS URINE NEGATIVE (NEGATIVE); METHADONE URINE NEGATIVE (NEGATIVE); OPIATES URINE NEGATIVE (NEGATIVE); PHENCYCLIDINE URINE NEGATIVE (NEGATIVE)
[2025-03-31 15:07] LABS: AMPHETAMINES LEVEL URINE POSITIVE (NEGATIVE); COCAINE METABOLITE URINE POSITIVE (NEGATIVE)
[2025-03-31 15:39] VITALS: BP 169/76; TEMP 97.7; O2SAT 96
[2025-03-31] MEDS: LR 1,000 ML IV SCH (16:43)
[2025-03-31] MEDS: INSULIN LISPRO (NovoLOG) PER UNIT SC SCH ×2 (17:37→21:15)
[2025-03-31] MEDS: ADVAIR HFA 230/21 MCG INHALER INH SCH (19:31)
[2025-03-31 20:00] VITALS: BP 139/63; TEMP 98.2; O2SAT 95
[2025-03-31] MEDS: DOXYCYCLINE HYCLATE 100 MG TABLET PO SCH (21:15)
[2025-04-01 04:00] VITALS: BP 138/64; TEMP 97.8; O2SAT 97
[2025-04-01 06:30] LABS: PLATELET COUNT, AUTOMATED 365 10^3/uL (150-450)
[2025-04-01 06:48] LABS: ALT/SGPT 41 U/L (7.0-40); AST/SGOT 30 U/L (<34); CALCIUM LEVEL 8.5 MG/DL (8.5-10.1); CARBON DIOXIDE LEVEL 24 MMOL/L (20-31); CHLORIDE LEVEL 105 MMOL/L (98-107); CREATININE FOR GFR 0.63 MG/DL (0.70-1.30); GLOMERULAR FILTRATION RATE > 90.0 (>60); POTASSIUM SERUM 4.4 MMOL/L (3.5-5.1); SODIUM LEVEL 139 MMOL/L (136-145)
[2025-04-01] MEDS: LanTUS (INSULIN GLARGINE INJ) 1 UNITS/0.01 ML SC SCH (09:28)
[2025-04-01 09:29] VITALS: BP 134/75
[2025-04-01] MEDS: ENOXAPARIN 40 MG/0.4 ML SYRINGE (J1650 PER 10MG) SC SCH (09:29)
[2025-04-01] MEDS: CEFEPIME HCL 2 GM in DEXTROSE 5% (D5W) ADV/MINI-BAG 50 ML IV SCH (09:30)
[2025-04-01] MEDS: INSULIN LISPRO (NovoLOG) PER UNIT SC SCH (10:06)
[2025-04-01] MEDS ORDERED: cefTRIAXone SOD 2 GM in DEXTROSE 5% (D5W) ADV/MINI-BAG 50 ML IV SCH (12:00)
[2025-04-01 12:20] VITALS: BP 138/77; TEMP 97.9; O2SAT 97
[2025-04-01 12:51] VITALS: O2SAT 93
== END 2025-04-01 17:05 | disposition left against medical advice (07) | DRG 190 ==
LOC: EDBD 07:37 → M ED 07:37 → M ED INP 13:30 → M MSPAV 15:39 → OBSVTOIN 04-01 11:00
PROVIDERS: ADMIT Student in an Organized Health Care Education/Training Program; ATTEND Student in an Organized Health Care Education/Training Program
DX: J44.1 Chronic obstructive pulmonary disease with (acute) exacerbation (principal); J18.9 Pneumonia, unspecified organism; J45.901 Unspecified asthma with (acute) exacerbation; I10 Essential (primary) hypertension; E10.9 Type 1 diabetes mellitus without complications; F17.200 Nicotine dependence, unspecified, uncomplicated; G25.81 Restless legs syndrome; J44.0 Chronic obstructive pulmonary disease with (acute) lower respiratory infection; G89.29 Other chronic pain; M54.9 Dorsalgia, unspecified; Z79.4 Long term (current) use of insulin; Z79.899 Other long term (current) drug therapy

== ENCOUNTER 2025-04-18 14:30 | Inpatient (IN) | payer MEDICARE ==
[~2025-04-18] VITALS: Ht 154.9 cm; Wt 55.0 kg
[~2025-04-18 14:30] MED LIST changes: +BASA100I SC; +NOVOINJ SC; +VENTAER INH
[2025-04-18 15:00] LABS: VENOUS BASE EXCESS 0.0 (-2.0-2.0); VENOUS HCO3 28.7 MMOL/L (23.0-27.0); VENOUS O2 SATURATION 42.0 % (60.0-80.0); VENOUS PARTIAL PRESSURE CO2 64.1 mmHg (38.0-50.0); VENOUS PARTIAL PRESSURE O2 26.7 mmHg (30.0-50.0); VENOUS PH 7.269 UNITS (7.330-7.430); VENOUS STANDARD HCO3 23.0 MMOL/L; VENOUS TOTAL CO2 30.7 MMOL/L (24.0-28.0)
[2025-04-18] MEDS ORDERED: HOME MED LIST COMPLETE! XX SCH (15:00)
[2025-04-18 15:08] LABS: BASO # 0.1 10^3/uL (0.0-0.2); BASO % 0.7 % (0.0-1.0); EOS # 0.3 10^3/uL (0.0-0.5); EOS % 2.4 % (0.0-3.0); LYMPH # 1.0 10^3/uL (1.5-5.0); LYMPH % 9.1 % (24.0-44.0); MONO # 0.8 10^3/uL (0.0-0.8); MONO % 6.7 % (2.0-8.0); NEUTROPHILS # 9.3 10^3/uL (1.5-8.5); NEUTROPHILS % 80.7 % (36.0-66.0); PLATELET COUNT, AUTOMATED 282 10^3/uL (150-450)
[2025-04-18 15:36] LABS: ACETONE/KETONE 0.21 MMOL/L (0.02-0.27)
[2025-04-18] MEDS ORDERED: DEXTROSE 50% 50 ML SYRINGE As Ordered ONE (15:38)
[2025-04-18 16:01] LABS: CALCIUM LEVEL 9.4 MG/DL (8.5-10.1); CARBON DIOXIDE LEVEL 29 MMOL/L (20-31); CHLORIDE LEVEL 104 MMOL/L (98-107); CREATININE FOR GFR 0.65 MG/DL (0.70-1.30); GLOMERULAR FILTRATION RATE > 90.0 (>60); POTASSIUM SERUM 3.9 MMOL/L (3.5-5.1); SODIUM LEVEL 144 MMOL/L (136-145)
[2025-04-18] MEDS: DEXTROSE 50% 50 ML SYRINGE IV STA ×2 (16:34→17:48)
[2025-04-18] MEDS: D5W/0.9% SODIUM CHLORIDE 1,000 ML IV SCH (16:42)
[2025-04-18] MEDS: D10W/0.45% SODIUM CHLORIDE 1,000 ML IV SCH (18:01)
[2025-04-18] MEDS ORDERED: D10W/0.45% SODIUM CHLORIDE 1,000 ML IV SCH (20:30)
[2025-04-18 20:45] VITALS: BP 153/73; TEMP 96.7; O2SAT 96
[2025-04-18] MEDS: SYMBICORT 160/4.5MCG INHALER 6GM INH SCH (20:49)
[2025-04-18] MEDS ORDERED: LanTUS (INSULIN GLARGINE INJ) 1 UNITS/0.01 ML SC SCH ×2 (21:00)
[2025-04-19] MEDS ORDERED: ENOXAPARIN 40 MG/0.4 ML SYRINGE (J1650 PER 10MG) SC SCH (09:00)
[2025-04-19] MEDS ORDERED: PANTOPRAZOLE 40MG VIAL IV SCH (09:00)
== END 2025-04-18 21:06 | disposition left against medical advice (07) | DRG 918 ==
LOC: M ED 14:30 → M ED INP 19:27
PROVIDERS: ADMIT Internal Medicine Pulmonary Disease; ATTEND Internal Medicine Pulmonary Disease
DX: T38.3X1A Poisoning by insulin and oral hypoglycemic [antidiabetic] drugs, accidental (unintentional), initial encounter (principal); I10 Essential (primary) hypertension; F17.210 Nicotine dependence, cigarettes, uncomplicated; J44.9 Chronic obstructive pulmonary disease, unspecified; G25.81 Restless legs syndrome; E10.649 Type 1 diabetes mellitus with hypoglycemia without coma; T68.XXXA Hypothermia, initial encounter; Z79.4 Long term (current) use of insulin; Z79.899 Other long term (current) drug therapy

== ENCOUNTER 2025-05-20 14:01 | Emergency (ER) | payer MEDICARE ==
[~2025-05-20] VITALS: Ht 162.6 cm; Wt 52.8 kg
[2025-05-20 16:23] VITALS: BP 136/81; TEMP 98.2; O2SAT 97
[2025-05-20] MEDS ORDERED: IPRA0.00 NEB (18:02)
[2025-05-20] MEDS ORDERED: PRED20TA PO (18:02)
[2025-05-20] MEDS: predniSONE 20 MG TAB PO ONE (18:04)
== END 2025-05-20 18:08 | disposition home or self-care (01) ==
LOC: M ED 14:01
DX: J44.9 Chronic obstructive pulmonary disease, unspecified (principal); R06.00 Dyspnea, unspecified; E10.40 Type 1 diabetes mellitus with diabetic neuropathy, unspecified; I10 Essential (primary) hypertension; F41.9 Anxiety disorder, unspecified; G25.81 Restless legs syndrome; Z87.440 Personal history of urinary (tract) infections; Z79.4 Long term (current) use of insulin; Z79.51 Long term (current) use of inhaled steroids
CPT/HCPCS: 71046; 87486; 87581; 87633; 87798; 93005; 99284; J7512